=== PATIENT | female | born 1970 | race Caucasian/White ===

== ENCOUNTER 2019-11-24 08:33 | Inpatient (IN) ==
[2019-11-24] MEDS ORDERED: *HR* FentaNYL (PF) 100 MCG/2 ML VIAL ONE (08:39)
[2019-11-24] MEDS ORDERED: Ondansetron 4 MG/2 ML VIAL ONE (08:39)
[2019-11-24] MEDS ORDERED: *HR* Succinylcholine 200 MG/10 ML VIAL IVP ONE (08:39)
[2019-11-24] MEDS ORDERED: Lidocaine -MPF 2% 2 ML VIAL ONE ×2 (08:39→13:43)
[2019-11-24] MEDS ORDERED: Lidocaine HCL 4 ML Topical Solution (Laryng-O-Jet Kit Sterile Pak) TP ONE (08:39)
[2019-11-24] MEDS ORDERED: *HR* Midazolam HCl 2 MG/2 ML VIAL ONE (08:39)
[2019-11-24] MEDS ORDERED: Dexamethasone 4 MG/ML VIAL ONE (08:39)
[2019-11-24] MEDS ORDERED: *HR* Propofol 200 MG/20 ML VIAL IVP ONE (08:39)
[2019-11-24] MEDS ORDERED: *HR* Remifentanil 1 MG VIAL IVP ONE ×2 (08:40→11:57)
[2019-11-24] MEDS ORDERED: *HR* Phenylephrine 10 MG/ML VIAL ONE (08:41)
[2019-11-24] MEDS ORDERED: Gabapentin 400 MG CAPSULE PO ONE (08:55)
[2019-11-24] MEDS ORDERED: *HR* Labetalol 20 MG/4 ML SYRINGE IVP PRN (08:59)
[2019-11-24] MEDS ORDERED: *HR* Promethazine 25 MG/ML VIAL IVP PRN (08:59)
[2019-11-24] MEDS ORDERED: *HR* HYDROmorphone (PF) 1 MG/ML SYRINGE IVP PRN (08:59)
[2019-11-24] MEDS ORDERED: Clindamycin 900 MG/50 ML 900 MG/50 ML IV.SOLN IVPB ONE (09:03)
[2019-11-24] MEDS ORDERED: Ringers Solution, Lactated 1,000 ML IVC SCH (09:15)
[2019-11-24] MEDS ORDERED: EPHEDrine 50 MG/ML VIAL ONE (10:04)
[2019-11-24] MEDS ORDERED: *HR* PHENYLEPHRINE 1,000 MCG/10 ML SYRINGE IVP ONE (10:06)
[2019-11-24] MEDS ORDERED: Bacitracin 50,000 UNIT, Polymyxin B Sulfate 500,000 UNIT, Sodium Chloride IRRigation 1,... IR ONE (10:55)
[2019-11-24] MEDS ORDERED: *HR* HYDROMORPHONE 2 MG/ML VIAL ONE (12:53)
[2019-11-24] MEDS ORDERED: Naloxone 0.4 MG/ML INJ IVP PRN (15:26)
[2019-11-24] MEDS ORDERED: Ondansetron 4 MG/2 ML VIAL IVP PRN (15:26)
[2019-11-24] MEDS ORDERED: NON-FORMULARY MEDICATION 1 EACH EACH (Naloxone 4 MG) NS PRN (15:26)
[2019-11-24] MEDS ORDERED: NON-FORMULARY MEDICATION 1 EACH EACH (Alendronate Sodium [Fosamax] 70 MG) PO SCH (15:30)
[2019-11-24] MEDS ORDERED: Ergocalciferol (VIT D2) 50,000 UNIT (1.25MG) CAP PO SCH (16:00)
[2019-11-24] MEDS: tiZANidine 4 MG TABLET PO PRN (16:53)
[2019-11-24] MEDS: Acetaminophen 325 MG TABLET PO PRN (18:04)
[2019-11-24] MEDS: *HR* OxyCODONE Immed Rel 5 MG TABLET PO PRN ×2 (18:05→22:52)
[2019-11-24] MEDS: Ringers Solution, Lactated 1,000 ML IVC SCH (21:20)
[2019-11-24] MEDS: traZODone 50 MG TABLET PO SCH (21:21)
[2019-11-24] MEDS: Divalproex (12 HR) 250 MG TABLET PO SCH (21:22)
[2019-11-24] MEDS: Gabapentin 400 MG CAPSULE PO SCH (21:22)
[2019-11-24] MEDS: QUEtiapine Fumarate 100 MG TABLET PO SCH (21:22)
[2019-11-24] MEDS: *HR* HYDROcodone/Acet 5/325 mg TABLET PO PRN (21:22)
[2019-11-25] MEDS: Acetaminophen 325 MG TABLET PO PRN (01:05)
[2019-11-25] MEDS: tiZANidine 4 MG TABLET PO PRN ×3 (01:05→17:19)
[2019-11-25] MEDS: *HR* OxyCODONE Immed Rel 5 MG TABLET PO PRN ×4 (03:28→17:42)
[2019-11-25] MEDS: Ringers Solution, Lactated 1,000 ML IVC SCH (05:21)
[2019-11-25] MEDS: *HR* HYDROcodone/Acet 5/325 mg TABLET PO PRN ×3 (05:22→21:13)
[2019-11-25] MEDS: QUEtiapine Fumarate 100 MG TABLET PO SCH ×2 (09:17→21:13)
[2019-11-25] MEDS: Divalproex (12 HR) 250 MG TABLET PO SCH ×2 (09:20→21:14)
[2019-11-25] MEDS: Venlafaxine XR (24 HR) 37.5 MG CAP.ER.24H PO SCH (09:20)
[2019-11-25] MEDS: Cholecalciferol (D-3) 1,000 UNIT (25MCG) TABLET PO SCH (09:20)
[2019-11-25] MEDS: Gabapentin 400 MG CAPSULE PO SCH ×3 (11:37→21:14)
[2019-11-25] MEDS: traZODone 50 MG TABLET PO SCH (21:13)
[2019-11-26] MEDS: *HR* OxyCODONE Immed Rel 5 MG TABLET PO PRN ×2 (02:07→16:54)
[2019-11-26] MEDS: Ringers Solution, Lactated 1,000 ML IVC SCH ×5 (02:07→11:18)
[2019-11-26] MEDS: Cholecalciferol (D-3) 1,000 UNIT (25MCG) TABLET PO SCH (08:03)
[2019-11-26] MEDS: QUEtiapine Fumarate 100 MG TABLET PO SCH ×2 (08:03→20:33)
[2019-11-26] MEDS: Gabapentin 400 MG CAPSULE PO SCH ×3 (08:03→20:32)
[2019-11-26] MEDS: Venlafaxine XR (24 HR) 37.5 MG CAP.ER.24H PO SCH (08:03)
[2019-11-26] MEDS: Divalproex (12 HR) 250 MG TABLET PO SCH ×2 (08:03→20:32)
[2019-11-26] MEDS: *HR* HYDROcodone/Acet 5/325 mg TABLET PO PRN ×2 (11:16→21:49)
[2019-11-26] MEDS: tiZANidine 4 MG TABLET PO PRN (15:21)
[2019-11-26] MEDS ORDERED: 0.9 % Sodium Chloride 250 ML IVC ONE (18:35)
[2019-11-26] MEDS: 0.9 % Sodium Chloride 1,000 ML IVC SCH (18:38)
[2019-11-26] MEDS ORDERED: 0.9 % Sodium Chloride 250 ML ONE (18:38)
[2019-11-26] MEDS ORDERED: 0.9 % Sodium Chloride 1,000 ML ONE (18:38)
[2019-11-26] MEDS: traZODone 50 MG TABLET PO SCH (23:10)
[2019-11-27] MEDS: Acetaminophen 325 MG TABLET PO PRN ×2 (03:21→15:39)
[2019-11-27] MEDS: 0.9 % Sodium Chloride 1,000 ML IVC SCH ×3 (03:21→20:02)
[2019-11-27] MEDS: QUEtiapine Fumarate 100 MG TABLET PO SCH ×2 (08:11→20:05)
[2019-11-27] MEDS: Gabapentin 400 MG CAPSULE PO SCH ×3 (08:11→20:03)
[2019-11-27] MEDS: Divalproex (12 HR) 250 MG TABLET PO SCH ×2 (08:12→20:03)
[2019-11-27] MEDS: Cholecalciferol (D-3) 1,000 UNIT (25MCG) TABLET PO SCH (08:13)
[2019-11-27] MEDS: Venlafaxine XR (24 HR) 37.5 MG CAP.ER.24H PO SCH (08:25)
[2019-11-27] MEDS: *HR* OxyCODONE Immed Rel 5 MG TABLET PO PRN ×3 (08:30→23:38)
[2019-11-27] MEDS ORDERED: 0.9 % Sodium Chloride 500 ML IVC PRN (10:30)
[2019-11-27 11:25] LABS: Hematocrit 28.8 % (35.3-44.9); Mean Corpuscular HGB Conc 31.6 g/dL (31.6-35.5); Mean Corpuscular Hemoglobin 30.8 pg (28.0-33.3); Mean Corpuscular Volume 97.6 fL (83.0-100.0); Mean Platelet Volume 12.4 fL (9.4-12.4); Platelet Count 128 K/mcL (140-400); Red Blood Count 2.95 M/mcL (3.82-4.97); Red Cell Distribution Width 14.9 % (11.5-14.5); White Blood Count 9.1 K/mcL (4.3-11.1)
[2019-11-27 12:14] LABS: Hemoglobin 9.1 g/dL (11.5-15.4)
[2019-11-27] MEDS: traZODone 50 MG TABLET PO SCH (20:03)
[2019-11-27] MEDS: *HR* HYDROcodone/Acet 5/325 mg TABLET PO PRN (20:03)
[2019-11-28] MEDS: *HR* OxyCODONE Immed Rel 5 MG TABLET PO PRN ×2 (03:53→09:38)
[2019-11-28] MEDS: 0.9 % Sodium Chloride 1,000 ML IVC SCH (03:53)
[2019-11-28] MEDS: Gabapentin 400 MG CAPSULE PO SCH (07:44)
[2019-11-28] MEDS: Divalproex (12 HR) 250 MG TABLET PO SCH (07:45)
[2019-11-28] MEDS: Venlafaxine XR (24 HR) 37.5 MG CAP.ER.24H PO SCH (07:45)
[2019-11-28] MEDS: QUEtiapine Fumarate 100 MG TABLET PO SCH (07:45)
[2019-11-28] MEDS: *HR* HYDROcodone/Acet 5/325 mg TABLET PO PRN (07:45)
[2019-11-28] MEDS: Cholecalciferol (D-3) 1,000 UNIT (25MCG) TABLET PO SCH (07:45)
[2019-11-28 11:03] VITALS: BP 104/67
[2019-11-28] MEDS: tiZANidine 4 MG TABLET PO PRN (11:55)
[2019-11-28] MEDS: Acetaminophen 325 MG TABLET PO PRN (11:55)
== END 2019-11-28 12:14 | disposition home health service (06) | DRG 454 ==
LOC: SAMDAY 08:33 → 3NENU 15:11
PROVIDERS: ADMIT Orthopaedic Surgery Orthopaedic Surgery of the Spine; ATTEND Orthopaedic Surgery Orthopaedic Surgery of the Spine